=== PATIENT | male | born 1945 | race Caucasian/White ===

== ENCOUNTER 2017-08-21 07:31 | Day surgery (SDC) | payer MEDICARE, BC ==
[~2017-08-21] VITALS: Ht 172.7 cm; Wt 121.9 kg
[2017-08-21] VITALS (11 sets, daily range): BP systolic 120–142; BP diastolic 69–89; PULSE 52–67; TEMP 97.6
[2017-08-21] MEDS ORDERED: TENORMIN 5050 MG/TAB PO (08:13)
[2017-08-21] MEDS ORDERED: ZYRTEC 10MG10 MG PO (08:14)
[2017-08-21 08:15] LABS: HEMATOCRIT 47.1 % (42.0-52.0); MEAN CELL VOLUME 90 fl (80.0-100.0); MEAN CORPUSCULAR HEMOGLOBIN 31 pg (27.0-31.0); MEAN CORPUSCULAR HGB CONC 34 g/dl (33.0-37.0); MEAN PLATELET VOLUME 9.9 fl (7.4-10.4); PLATELET COUNT 237 K/mm3 (130-400); RED BLOOD COUNT 5.23 M/mm3 (4.20-5.60); WHITE BLOOD COUNT 8.2 K/mm3 (4.8-10.8)
[2017-08-21] MEDS ORDERED: NORCO 325 MG-7.1 TAB PO (08:16)
[2017-08-21] MEDS ORDERED: LEVOXYL0.125 MG PO (08:17)
[2017-08-21] MEDS ORDERED: PROCARDIA XL 3030 MG PO (08:17)
[2017-08-21] MEDS ORDERED: PROTONIX 40MG T40 MG PO (08:18)
[2017-08-21 08:19] LABS: PROTHROMBIN TIME 10.8 SECONDS (9.7-12.8)
[2017-08-21] MEDS ORDERED: ASPIRIN E.C. 8181 MG PO (08:19)
[2017-08-21] MEDS ORDERED: LIVALO4 MG PO (08:20)
[2017-08-21 08:25] LABS: CALCIUM 9.7 mg/dL (8.4-10.2); CREATININE, serum 0.76 mg/dL (0.66-1.25); POTASSIUM 4.3 mmol/L (3.4-5.0)
== END 2017-08-21 14:00 | disposition home or self-care (01) ==
LOC: COL.CAR 07:31
PROVIDERS: Internal Medicine Cardiovascular Disease
DX: I25.10 Atherosclerotic heart disease of native coronary artery without angina pectoris (principal); I08.1 Rheumatic disorders of both mitral and tricuspid valves; I10 Essential (primary) hypertension; E78.5 Hyperlipidemia, unspecified; Z96.653 Presence of artificial knee joint, bilateral; Z82.49 Family history of ischemic heart disease and other diseases of the circulatory system; Z87.891 Personal history of nicotine dependence
CPT/HCPCS: J2250; J3010; Q9967

== ENCOUNTER → 2017-12-04 | Outpatient (CLI) | payer MEDICARE, BC ==
[~2017-12-04] MED LIST: ASPIRIN E.C. 8181 MG PO; LEVOXYL0.125 MG PO; LIVALO4 MG PO; NORCO 325 MG-7.1 TAB PO; PROCARDIA XL 3030 MG PO; PROTONIX 40MG T40 MG PO; TENORMIN 5050 MG/TAB PO; ZYRTEC 10MG10 MG PO
== END ==
LOC: COL.PUL 12:55
DX: R06.02 Shortness of breath (principal)
CPT/HCPCS: J7674

== ENCOUNTER → 2018-03-05 | Outpatient (CLI) | payer MEDICARE, BC ==
[~2018-03-05] VITALS: Ht 172.7 cm; Wt 125.0 kg
[~2018-03-05] MED LIST changes: +CRESTOR40 MG
[2018-03-05 10:11] VITALS: BP 148/86; PULSE 68
[2018-03-05 11:20] VITALS: BP 122/76; PULSE 63
== END ==
LOC: COL.RAD 09:51
DX: M48.07 Spinal stenosis, lumbosacral region (principal)
CPT/HCPCS: J3301

== ENCOUNTER 2018-03-07 18:27 | Emergency (ER) | payer MEDICARE, BC ==
[~2018-03-07] VITALS: Ht 172.7 cm; Wt 124.1 kg
[2018-03-07 18:31] VITALS: TEMP 98.3
[2018-03-07 19:38] LABS: COLLECTION METHOD CLEAN CATCH
[2018-03-07 19:51] LABS: MUCOUS Present /lpf; PH 5 (5-8); SQUAMOUS EPITHELIAL None Seen /hpf; URINE APPEARANCE Hazy; URINE BACTERIA None Seen /hpf; URINE BILIRUBIN Negative (NEGATIVE); URINE BLOOD 2+ (NEGATIVE); URINE CALCIUM OXALATE CRYSTAL Present /hpf; URINE COLOR Yellow; URINE GLUCOSE Negative (NEGATIVE); URINE KETONE Negative (NEGATIVE); URINE LEUKOCYTE ESTERASE Negative (NEGATIVE); URINE NITRATE Negative (NEGATIVE); URINE PROTEIN(semi-quant) 1+ (NEGATIVE)
[2018-03-07 20:24] LABS: BASO % 0.3 % (0.0-2.0); EOS # 0.1 (0.0-0.7); EOS % 0.5 % (0-4.0); GRAN # 6.2 (1.4-6.5); GRAN % 61.3 % (42.2-75.2); HEMATOCRIT 43.1 % (42.0-52.0); LYMPH # 3.1 (1.2-3.4); LYMPH % 30.4 % (20.0-51.0); MEAN CELL VOLUME 89 fl (80.0-100.0); MEAN CORPUSCULAR HEMOGLOBIN 31 pg (27.0-31.0); MEAN CORPUSCULAR HGB CONC 35 g/dl (33.0-37.0); MEAN PLATELET VOLUME 9.1 fl (7.4-10.4); MONO # 0.7 (0.1-0.6); MONO % 7.3 % (1.7-9.3); PLATELET COUNT 240 K/mm3 (130-400); RED BLOOD COUNT 4.83 M/mm3 (4.20-5.60); REDCELL DISTRIBUTION WIDTH-CV 12.1 % (11.5-14.5)
[2018-03-07 20:35] LABS: ALBUMIN 4.2 gm/dL (3.5-5.0); BILIRUBIN,TOTAL 0.6 mg/dL (0.0-1.0); CALCIUM 9.3 mg/dL (8.4-10.2); CREATININE, serum 0.74 mg/dL (0.66-1.25); POTASSIUM 4.2 mmol/L (3.4-5.0); TOTAL PROTEIN 7.8 gm/dL (6.4-8.2)
[2018-03-07] MEDS ORDERED: VALIUM 2MG T2 MG/TAB PO (22:30)
[2018-03-07] MEDS ORDERED: NEURONTIN300 MG/CAP PO (22:30)
[2018-03-07 22:44] VITALS: BP 123/67; PULSE 51
== END 2018-03-07 22:48 | disposition home or self-care (01) ==
LOC: COL.ER 18:27
PROVIDERS: Emergency Medicine
DX: M54.31 Sciatica, right side (principal); I10 Essential (primary) hypertension; E78.00 Pure hypercholesterolemia, unspecified; Z90.49 Acquired absence of other specified parts of digestive tract; Z96.651 Presence of right artificial knee joint; Z79.82 Long term (current) use of aspirin
CPT/HCPCS: J1170; J1885; J2060; J7040; J7050; Q9967

== ENCOUNTER → 2018-05-12 | Outpatient (CLI) | payer MEDICARE, BC ==
[~2018-05-12] MED LIST changes: +NEURONTIN300 MG/CAP PO; +VALIUM 2MG T2 MG/TAB PO
== END ==
LOC: COL.RAD 11:31
DX: S32.030D Wedge compression fracture of third lumbar vertebra, subsequent encounter for fracture with routine healing (principal); Z98.890 Other specified postprocedural states

== ENCOUNTER → 2018-05-21 | Outpatient (CLI) | payer MEDICARE, BC | LOC: MHCPAIN 09:29 | DX: M54.16 Radiculopathy, lumbar region (principal) | CPT/HCPCS: J1040; J2250; J3010; Q9967 ==

== ENCOUNTER → 2018-06-23 | Outpatient (CLI) | payer MEDICARE, BC | LOC: MHCPAIN 11:09 | DX: G89.29 Other chronic pain (principal); M47.817 Spondylosis without myelopathy or radiculopathy, lumbosacral region; M54.16 Radiculopathy, lumbar region; M53.3 Sacrococcygeal disorders, not elsewhere classified; M96.1 Postlaminectomy syndrome, not elsewhere classified | CPT/HCPCS: G0463 ==

== ENCOUNTER → 2018-07-14 | Outpatient (CLI) | payer MEDICARE, BC | LOC: MHCPAIN 12:30 | DX: G89.29 Other chronic pain (principal); M47.817 Spondylosis without myelopathy or radiculopathy, lumbosacral region; M54.16 Radiculopathy, lumbar region; M53.3 Sacrococcygeal disorders, not elsewhere classified; M96.1 Postlaminectomy syndrome, not elsewhere classified | CPT/HCPCS: G0463 ==

== ENCOUNTER → 2018-07-16 | Outpatient (CLI) | payer MEDICARE, BC | LOC: MHCPAIN 11:01 | DX: M47.817 Spondylosis without myelopathy or radiculopathy, lumbosacral region (principal); M54.16 Radiculopathy, lumbar region ==

== ENCOUNTER → 2018-07-22 | Outpatient (CLI) | payer MEDICARE, BC | LOC: MHCPAIN 13:06 | DX: G89.29 Other chronic pain (principal); M47.817 Spondylosis without myelopathy or radiculopathy, lumbosacral region; M54.16 Radiculopathy, lumbar region; M53.3 Sacrococcygeal disorders, not elsewhere classified; M96.1 Postlaminectomy syndrome, not elsewhere classified | CPT/HCPCS: G0463 ==

== ENCOUNTER → 2018-07-23 | Outpatient (CLI) | payer MEDICARE, BC | LOC: MHCPAIN 12:08 | DX: M47.817 Spondylosis without myelopathy or radiculopathy, lumbosacral region (principal); M54.5 Low back pain | CPT/HCPCS: J1100; J2250; J3010 ==

== ENCOUNTER → 2018-09-22 | Outpatient (CLI) | payer MEDICARE, BC | LOC: MHCPAIN 11:03 | DX: G89.29 Other chronic pain (principal); M47.817 Spondylosis without myelopathy or radiculopathy, lumbosacral region; M54.16 Radiculopathy, lumbar region; M53.3 Sacrococcygeal disorders, not elsewhere classified; M96.1 Postlaminectomy syndrome, not elsewhere classified | CPT/HCPCS: G0463 ==

== ENCOUNTER → 2019-02-24 | Outpatient (CLI) | payer MEDICARE, BC | LOC: MHCPAIN 13:04 | DX: G89.29 Other chronic pain (principal); M47.817 Spondylosis without myelopathy or radiculopathy, lumbosacral region; M54.16 Radiculopathy, lumbar region; M53.3 Sacrococcygeal disorders, not elsewhere classified; M96.1 Postlaminectomy syndrome, not elsewhere classified | CPT/HCPCS: G0463 ==

== ENCOUNTER → 2019-02-25 | Outpatient (CLI) | payer MEDICARE, BC | LOC: MHCPAIN 14:58 | DX: M47.817 Spondylosis without myelopathy or radiculopathy, lumbosacral region (principal); M54.16 Radiculopathy, lumbar region ==

== ENCOUNTER → 2019-03-08 | Outpatient (CLI) | payer MEDICARE, BC | LOC: MHCPAIN 13:16 | DX: M47.817 Spondylosis without myelopathy or radiculopathy, lumbosacral region (principal); M54.16 Radiculopathy, lumbar region; M53.3 Sacrococcygeal disorders, not elsewhere classified; M96.1 Postlaminectomy syndrome, not elsewhere classified; G89.29 Other chronic pain | CPT/HCPCS: G0463; J1100; J2250; J3010 ==

== ENCOUNTER 2019-03-15 14:24 | Emergency (ER) | payer MEDICARE, BC ==
[~2019-03-15] VITALS: Ht 172.7 cm; Wt 122.3 kg
[2019-03-15 14:29] VITALS: BP 140/89; TEMP 98
[2019-03-15 14:56] LABS: COLLECTION METHOD CLEAN CATCH
[2019-03-15 15:16] LABS: PH 6 (5-8); SQUAMOUS EPITHELIAL None Seen /hpf; URINE APPEARANCE Clear; URINE BACTERIA None Seen /hpf; URINE BILIRUBIN Negative (NEGATIVE); URINE BLOOD 2+ (NEGATIVE); URINE COLOR Straw; URINE GLUCOSE Negative (NEGATIVE); URINE KETONE Negative (NEGATIVE); URINE LEUKOCYTE ESTERASE Negative (NEGATIVE); URINE NITRATE Negative (NEGATIVE); URINE PROTEIN(semi-quant) Negative (NEGATIVE); URINE RBC 0-2 /hpf; URINE UROBILINOGEN Negative (NEGATIVE)
[2019-03-15] MEDS ORDERED: NEURONTIN300 MG/CAP PO (15:49)
[2019-03-15] MEDS ORDERED: VALIUM 5MG T5 MG/TAB PO (15:49)
[2019-03-15] MEDS ORDERED: PREDNISONE20 MG PO (15:49)
[2019-03-15] MEDS ORDERED: PERCOCET 325 MG1 TA3 PO (16:15)
[2019-03-15 16:23] VITALS: PULSE 67
== END 2019-03-15 16:22 | disposition home or self-care (01) ==
LOC: COL.ER 14:24
PROVIDERS: Emergency Medicine
DX: M54.5 Low back pain (principal); I10 Essential (primary) hypertension; K21.9 Gastro-esophageal reflux disease without esophagitis; Z98.890 Other specified postprocedural states; Z90.49 Acquired absence of other specified parts of digestive tract; Z87.39 Personal history of other diseases of the musculoskeletal system and connective tissue; Z79.82 Long term (current) use of aspirin
CPT/HCPCS: J1170; J2060; J7512

== ENCOUNTER → 2019-03-18 | Outpatient (CLI) | payer MEDICARE, BC ==
[~2019-03-18] MED LIST changes: +PERCOCET 325 MG1 TA3 PO; +PREDNISONE20 MG PO; +VALIUM 5MG T5 MG/TAB PO
== END ==
LOC: MHCPAIN 11:04
DX: M54.16 Radiculopathy, lumbar region (principal); M47.817 Spondylosis without myelopathy or radiculopathy, lumbosacral region; M53.3 Sacrococcygeal disorders, not elsewhere classified; M96.1 Postlaminectomy syndrome, not elsewhere classified; G89.29 Other chronic pain
CPT/HCPCS: G0463; J1100; Q9967

== ENCOUNTER 2019-04-25 12:56 | Emergency (ER) | payer MEDICARE, BC ==
[~2019-04-25] VITALS: Ht 175.3 cm; Wt 122.3 kg
[2019-04-25] MEDS ORDERED: VALIUM 5MG T5 MG/TAB PO (16:29)
[2019-04-25] MEDS ORDERED: FLEXERIL 1010 MG/TAB PO (16:29)
[2019-04-25] MEDS ORDERED: PERCOCET 325 MG1 TA2 PO (16:29)
[2019-04-25] MEDS ORDERED: MEDROL 4MG DOSPA4 MG PO (16:29)
[2019-04-25 16:45] VITALS: BP 126/67; PULSE 66; TEMP 98.7
== END 2019-04-25 16:45 | disposition home or self-care (01) ==
LOC: COL.ER 12:56
DX: M54.5 Low back pain (principal); G89.29 Other chronic pain; Z79.82 Long term (current) use of aspirin
CPT/HCPCS: J1885; J2270

== ENCOUNTER → 2019-04-26 | Outpatient (CLI) | payer MEDICARE, BC ==
[~2019-04-26] MED LIST changes: +FLEXERIL 1010 MG/TAB PO; +MEDROL 4MG DOSPA4 MG PO; +PERCOCET 325 MG1 TA2 PO
== END ==
LOC: COL.RAD 15:38
DX: M43.8X6 Other specified deforming dorsopathies, lumbar region (principal)

== ENCOUNTER 2019-05-19 14:45 | Outpatient (RCR) | payer MEDICARE, BC | END 2019-05-20 13:29 | disposition home or self-care (01) | LOC: WSC 14:45 | DX: M47.817 Spondylosis without myelopathy or radiculopathy, lumbosacral region (principal); M96.1 Postlaminectomy syndrome, not elsewhere classified; M53.3 Sacrococcygeal disorders, not elsewhere classified; Z98.890 Other specified postprocedural states ==

== ENCOUNTER → 2019-06-15 | Outpatient (CLI) | payer MEDICARE, BC | LOC: MHCPAIN 12:56 | DX: G89.29 Other chronic pain (principal); M47.817 Spondylosis without myelopathy or radiculopathy, lumbosacral region; M54.16 Radiculopathy, lumbar region | CPT/HCPCS: G0463 ==

== ENCOUNTER 2020-08-04 14:09 | Observation (INO) | payer MEDICARE, BC ==
[~2020-08-04] VITALS: Ht 175.3 cm; Wt 122.6 kg
[2020-08-04 15:11] LABS: COLLECTION METHOD CLEAN CATCH
[2020-08-04 15:40] LABS: MUCOUS Present /lpf; PH 6 (5-8); SQUAMOUS EPITHELIAL None Seen /hpf; URINE APPEARANCE Clear; URINE BACTERIA None Seen /hpf; URINE BILIRUBIN Negative (NEGATIVE); URINE BLOOD 2+ (NEGATIVE); URINE COLOR Yellow; URINE GLUCOSE Negative (NEGATIVE); URINE KETONE Negative (NEGATIVE); URINE LEUKOCYTE ESTERASE Negative (NEGATIVE); URINE NITRATE Negative (NEGATIVE); URINE PROTEIN(semi-quant) Negative (NEGATIVE); URINE UROBILINOGEN Negative (NEGATIVE)
[2020-08-04 17:55] LABS: BASO % 0.2 % (0.0-2.0); EOS % 0.2 % (0-4.0); GRAN % 78.2 % (42.2-75.2); HEMATOCRIT 44.4 % (42.0-52.0); HEMOGLOBIN 15.4 g/dl (13.5-18.0); LYMPH # 2.3 (1.2-3.4); LYMPH % 17.7 % (20.0-51.0); MEAN CELL VOLUME 90 fl (80.0-100.0); MEAN CORPUSCULAR HEMOGLOBIN 31 pg (27.0-31.0); MEAN CORPUSCULAR HGB CONC 35 g/dl (33.0-37.0); MEAN PLATELET VOLUME 9.3 fl (7.4-10.4); MONO # 0.4 (0.1-0.6); MONO % 3.4 % (1.7-9.3); PLATELET COUNT 263 K/mm3 (130-400); RED BLOOD COUNT 4.96 M/mm3 (4.20-5.60); REDCELL DISTRIBUTION WIDTH-CV 11.7 % (11.5-14.5)
[2020-08-04 18:12] LABS: ALBUMIN 4.9 gm/dL (3.5-5.0); BILIRUBIN,TOTAL 1.7 mg/dL (0.0-1.0); C-REACTIVE PROTEIN 0.6 mg/dL (0.0-0.9); CALCIUM 9.7 mg/dL (8.4-10.2); CREATININE, serum 0.61 (0.66-1.25); POTASSIUM 4.4 mmol/L (3.4-5.0); TOTAL PROTEIN 8.6 gm/dL (6.4-8.2)
[2020-08-04 18:23] LABS: ERYTHROCYTE SEDIMENTATION RATE 13 mm/hr (0-30)
[2020-08-04] MEDS ORDERED: SYNTHROID0.125 MG/T PO (19:39)
[2020-08-04] MEDS ORDERED: VOLTAREN GEL 1%1 TU TP (19:39)
[2020-08-04] MEDS ORDERED: ADALAT CC60 MG PO (19:40)
[2020-08-04] MEDS ORDERED: PERCOCET 325 MG1 TA2 PO (19:41)
[2020-08-04] MEDS ORDERED: PROTONIX 40MG T40 MG PO (19:41)
[2020-08-04] MEDS ORDERED: LIVALO2 MG PO (19:41)
[2020-08-04] MEDS ORDERED: MYRBETR50MG PO (19:42)
[2020-08-04] MEDS ORDERED: VIAGRA 25MG TAB25 MG PO (19:42)
[2020-08-04] MEDS ORDERED: LIORESAL 1010 MG/TAB PO (19:45)
[2020-08-04] MEDS ORDERED: BENADRYL25 M2 PO (21:45)
[2020-08-04] MEDS ORDERED: MELATONIN5 M1 SL (21:45)
[2020-08-04 23:48] VITALS: BP 145/72; PULSE 69; TEMP 97.7
--- NOTE | 2020-08-05 | NUR ---
Patient arrived to medical floor from ER at approximately 2200. Reports pain to back. Given PRN Dilaudid. Complained of insomnia and was given Melatonin. Peripheral IV to right AC. Fluids running per orders. Site without redness, warmth, swelling, and pain. Denies SOB and dyspnea. LS CTA. Respirations even and unlabored. HRR. Capillary refill less than 3 seconds. Non-tenting skin turgor. BSAx4. Abdomen soft and non-tender. 1+ edema BLE. Voices no questions, needs, or concerns at this time. Resting in bed with call light within reach.
[2020-08-05 04:00] VITALS: BP 139/66; PULSE 65; TEMP 98.1
--- NOTE | 2020-08-05 06:02 | NUR ---
Patient continues to receive PRN Dilaudid for pain about every 2-3 hours as requested. Has been able to stand up by bed to use urinal. Ambulated to bathroom at this time with one person [id number]. Stated that he did not have any of the shooting pain while ambulating that was severe, but pain does continue. Voices no further questions, needs, or concerns at this time. Resting in bed with call light within reach.
[2020-08-05 07:20] LABS: BASO % 0.1 % (0.0-2.0); GRAN # 9.2 (1.4-6.5); GRAN % 77.8 % (42.2-75.2); HEMATOCRIT 41.2 % (42.0-52.0); HEMOGLOBIN 14.4 g/dl (13.5-18.0); LYMPH # 2.1 (1.2-3.4); LYMPH % 17.9 % (20.0-51.0); MEAN CELL VOLUME 89 fl (80.0-100.0); MEAN CORPUSCULAR HEMOGLOBIN 31 pg (27.0-31.0); MEAN CORPUSCULAR HGB CONC 35 g/dl (33.0-37.0); MEAN PLATELET VOLUME 9.5 fl (7.4-10.4); MONO # 0.5 (0.1-0.6); MONO % 3.9 % (1.7-9.3); PLATELET COUNT 253 K/mm3 (130-400); RED BLOOD COUNT 4.62 M/mm3 (4.20-5.60); REDCELL DISTRIBUTION WIDTH-CV 11.8 % (11.5-14.5)
[2020-08-05 07:31] LABS: ALBUMIN 4.5 gm/dL (3.5-5.0); BILIRUBIN,TOTAL 0.8 mg/dL (0.0-1.0); CALCIUM 9.5 mg/dL (8.4-10.2); CREATININE, serum 0.53 (0.66-1.25); POTASSIUM 3.9 mmol/L (3.4-5.0); TOTAL PROTEIN 7.8 gm/dL (6.4-8.2)
[2020-08-05 08:22] VITALS: BP 150/75; PULSE 76; TEMP 97.9
--- NOTE | 2020-08-05 08:46 | NUR ---
PT IN BED WITH HOB ELEVATED TO 30 DEGREE ANGLE, A/O X4, WITH C/O LOWER BACK PAIN THAT IS A CONSTANT ACHE, BUT WITH MOVEMENT IS A SHARP PAIN, RATED AT 5/10 AT THIS TIME, PRN PAIN MEDICATION GIVEN FOR PAIN, SEE EMAR. NO FURTHER NEEDS AT THIS TIME, CALL LIGHT WITHIN REACH.
[2020-08-05 12:26] VITALS: BP 151/75; PULSE 63; TEMP 98.1
--- NOTE | 2020-08-05 14:07 | NUR ---
SW met with patient to complete intake. Patient states that he lives in [facility] with his [phone]. patient states that he does not utilize any DME, and he is independent with his ADL's. Patient provides that his PCP is Dr. Flores, obtains medications from [facility], and that he is able to afford his medication at this time. Patient provides that he has documentation that his is his DPOA-HC and that he has the documenation at home. Patient states that his plan is to go back home upon DC and does not feel as though he will need any assistance when he returns. SW provided information in regards to discharge resource that can be provided when discharging. SW will continue to follow.
[2020-08-05 16:36] VITALS: BP 151/69; PULSE 63; TEMP 98.4
[2020-08-05 19:08] VITALS: BP 139/73; PULSE 60; TEMP 98.5
--- NOTE | 2020-08-05 19:14 | NUR ---
PT CONTINUED TO STRUGGLE WITH KEEPING PAIN UNDER CONTROL. PT ALSO ADVISED THAT HE HAD TWO EPISODES OF DIARRHEA. PT DID GET SOME REST THIS SHIFT. PT HAS CALL LIGHT WITHIN REACH AND NEEDS MET.
--- NOTE | 2020-08-05 20:50 | NUR ---
Patient assessed at this time. Alert and oriented x 4, and able to make needs known. Continues to have pain to back. Stated not so bad at rest, but severe wtih any movement. Is standing up at bedside independently to use urinal. Has been receiving PRN Dilaudid, Toradol, and Ultram per orders-see MAR for times. Peripheral IV to right AC with fluids running per orders. Site is without redness, warmth, swelling, and pain. Denies SOB and dyspnea. LS CTA. Respirations even and unlabored. HRR. Capillary refill less than 3 seconds. Non-tenting skin turgor. BSAx4. Abdomen soft and non-tender. 2+ edema BLE. Voices no questions, needs, or concerns at this time. Resting in bed with call light within reach.
[2020-08-05 23:27] VITALS: BP 136/54; PULSE 53; TEMP 99
[2020-08-06 03:58] VITALS: BP 147/73; PULSE 51; TEMP 98.2
--- NOTE | 2020-08-06 06:05 | NUR ---
Patient had received PNR Dilaudid around 2049, 2309, and 499, PRN Ultram around 2049, and PRN Toradol around 2219 and 499 as requested. Seemed to be resting well between midnight and 0500 when checked on, and voiced no complaints of pain or discomfort during that time. Voices no questions, needs, or concerns at this time. Resting in bed with call light within reach.
[2020-08-06 07:11] VITALS: BP 152/75; PULSE 55; TEMP 97.8
[2020-08-06 07:16] LABS: BASO # 0.1 (0.0-0.2); BASO % 0.4 % (0.0-2.0); EOS # 0.1 (0.0-0.7); EOS % 0.5 % (0-4.0); GRAN # 7.7 (1.4-6.5); HEMATOCRIT 40.3 % (42.0-52.0); LYMPH # 4.5 (1.2-3.4); LYMPH % 33.4 % (20.0-51.0); MEAN CELL VOLUME 91 fl (80.0-100.0); MEAN CORPUSCULAR HEMOGLOBIN 32 pg (27.0-31.0); MEAN CORPUSCULAR HGB CONC 35 g/dl (33.0-37.0); MEAN PLATELET VOLUME 9.2 fl (7.4-10.4); MONO % 7.4 % (1.7-9.3); PLATELET COUNT 243 K/mm3 (130-400); RED BLOOD COUNT 4.44 M/mm3 (4.20-5.60); REDCELL DISTRIBUTION WIDTH-CV 12.2 % (11.5-14.5)
[2020-08-06 07:29] LABS: ALBUMIN 4.1 gm/dL (3.5-5.0); BILIRUBIN,TOTAL 0.7 mg/dL (0.0-1.0); CALCIUM 9.1 mg/dL (8.4-10.2); CREATININE, serum 0.59 (0.66-1.25); POTASSIUM 3.7 mmol/L (3.4-5.0); TOTAL PROTEIN 7.2 gm/dL (6.4-8.2)
--- NOTE | 2020-08-06 08:26 | NUR ---
Pt assessment complete. Pt is sitting up on side of bed eating breakfast, he is A/O x3. His breathing is even and unlabored on RA. Pt denies SOB. Currently on RA. Pt reports pain with movement 12/10, but at rest /10. Reports that the shooting pains have not lessened in intensity but occasionally do not occur. Reports having two loose stools this AM. No N/V. IVF infusing without complications. SCD's in place. POC discussed with patient who verbalizes understanding. No needs at this time.
[2020-08-06 11:33] VITALS: BP 146/72; PULSE 48; TEMP 98
[2020-08-06] MEDS ORDERED: ULTRAM 50MG TAB50 MG PO (12:07)
--- NOTE | 2020-08-06 13:50 | NUR ---
SW received a call from patients provider who indicated that patient was discharging and he was interested in what services may be available for patient. SW spoke with patient, who reported an interest in PT/OT services. Patient provided [facility] med.gov sheet and patient chose three different [facility] agencies ([facility], [facility], and [facility]) Sw informed provider. SW then contacted agencies, and faxed over forms. Rae at [facility] did contact this SW and indicated that she would have to contact her bottoming room supervisor to see if the patient could be serviced as he may not live in their covered area.
--- NOTE | 2020-08-06 15:40 | NUR ---
Discharge instructions and paperwork reviewed with patient. All questions answered at this time. IV to RAC dc'd catheter tip intact. Pt wheeled out of facility at this time.
--- NOTE | 2020-08-07 10:00 | NUR ---
Container Finisher was contacted by Suzanne at [facility] who advised she did not receive referral yesterday. SW faxed referral and discharge orders as patient discharged yesterday. No additional needs identified at this time.
== END 2020-08-06 15:20 | disposition home or self-care (01) ==
LOC: COL.ER 14:09 → MEDICAL 18:58
PROVIDERS: Emergency Medicine; Nurse Practitioner Family; ADMIT Internal Medicine Pulmonary Disease
DX: M54.5 Low back pain (principal); G89.29 Other chronic pain; M48.07 Spinal stenosis, lumbosacral region; R74.01 Elevation of levels of liver transaminase levels; M43.07 Spondylolysis, lumbosacral region; M54.17 Radiculopathy, lumbosacral region; F11.20 Opioid dependence, uncomplicated; I10 Essential (primary) hypertension; I25.10 Atherosclerotic heart disease of native coronary artery without angina pectoris; E03.9 Hypothyroidism, unspecified; K21.9 Gastro-esophageal reflux disease without esophagitis; D72.829 Elevated white blood cell count, unspecified; D35.02 Benign neoplasm of left adrenal gland; E80.7 Disorder of bilirubin metabolism, unspecified; R35.0 Frequency of micturition; R35.1 Nocturia; F17.290 Nicotine dependence, other tobacco product, uncomplicated; Z85.820 Personal history of malignant melanoma of skin; Z98.1 Arthrodesis status; Z90.49 Acquired absence of other specified parts of digestive tract; Z96.653 Presence of artificial knee joint, bilateral; Z79.899 Other long term (current) drug therapy
CPT/HCPCS: 99239; G0378; J1170; J1885; J2930; J3010; J3360; J7030

== ENCOUNTER 2020-10-16 10:30 | Outpatient (RCR) | payer MEDICARE, BC ==
[~2020-10-16 10:30] MED LIST changes: +ADALAT CC60 MG PO; +BENADRYL25 M2 PO; +LIORESAL 1010 MG/TAB PO; +LIVALO2 MG PO; +MELATONIN5 M1 SL; +MYRBETR50MG PO; +SYNTHROID0.125 MG/T PO; +ULTRAM 50MG TAB50 MG PO; +VIAGRA 25MG TAB25 MG PO; +VOLTAREN GEL 1%1 TU TP
== END 2020-10-23 | disposition home or self-care (01) ==
LOC: WSPT
DX: M54.42 Lumbago with sciatica, left side (principal)

== ENCOUNTER → 2020-11-01 | Outpatient (CLI) | payer MEDICARE, BC | LOC: COL.RAD 11:26 | DX: I67.82 Cerebral ischemia (principal); G31.9 Degenerative disease of nervous system, unspecified; Z98.890 Other specified postprocedural states ==

== ENCOUNTER 2021-03-01 08:15 | Outpatient (RCR) | payer MEDICARE, BC | END 2021-03-02 09:48 | disposition home or self-care (01) | LOC: WSPT 08:15 | DX: M54.41 Lumbago with sciatica, right side (principal); M54.42 Lumbago with sciatica, left side; G89.29 Other chronic pain ==

== ENCOUNTER 2023-09-25 08:53 | Outpatient (RCR) | payer MEDICARE, BC ==
[2023-10-17] MEDS ORDERED: ATARAX 25MG25 MG/TAB PO (15:50)
[2023-10-17] MEDS ORDERED: STOOL SOFTENER100 M2 PO (15:52)
[2023-10-17] MEDS ORDERED: ROXICODONE 55 MG/TAB PO (16:00)
[2023-10-17] MEDS ORDERED: NORCO 325 MG-7.1 TAB PO (16:04)
[2023-10-17] MEDS ORDERED: LYRICA 75MG CAP75 MG PO (16:08)
[2023-10-17] MEDS ORDERED: JARDIANCE25 PO (16:09)
== END 2023-10-19 | disposition home or self-care (01) ==
LOC: WSPT
DX: M19.072 Primary osteoarthritis, left ankle and foot (principal); M21.42 Flat foot [pes planus] (acquired), left foot

== ENCOUNTER 2023-10-17 12:50 | Inpatient (IN) | payer MEDICARE, BC ==
[~2023-10-17] VITALS: Ht 175.3 cm; Wt 113.2 kg
[2023-10-17 13:00] VITALS: BP_SYST 132
[2023-10-17 14:07] VITALS: BP 132/80; PULSE 60; TEMP 97.8
--- NOTE | 2023-10-17 15:40 | NUR ---
Has lack of transportation kept you from medical appts, meetings, work, or from getting things needed for daily living? no How often do you feel lonely or isolated from those around you? never Over the past 5 days, how much of the time has pain made it hard for you to sleep? frequently Over the past 5 days, how often have you limited your participation in therapy due to pain? NO THERAPY IN PAST 5 DAYS Over the past 5 days, how often have you limited your day-to-day activities because of pain? rarely/not at all Have you had 2 or more falls in the past year or any fall with an injury? no Did you have major surgery during the 100 days prior to admission? yes
[2023-10-17] MEDS ORDERED: ATARAX 25MG25 MG/TAB PO (15:50)
[2023-10-17] MEDS ORDERED: STOOL SOFTENER100 M2 PO (15:52)
[2023-10-17] MEDS ORDERED: ROXICODONE 55 MG/TAB PO (16:00)
[2023-10-17] MEDS ORDERED: NORCO 325 MG-7.1 TAB PO (16:04)
[2023-10-17] MEDS ORDERED: TENORMIN 5050 MG/TAB PO (16:06)
[2023-10-17] MEDS ORDERED: LYRICA 75MG CAP75 MG PO (16:08)
[2023-10-17] MEDS ORDERED: JARDIANCE25 PO (16:09)
[2023-10-17 16:56] VITALS: BP_SYST 132
[2023-10-17 18:05] VITALS: BP 137/88; PULSE 52; TEMP 97.8
[2023-10-17 21:00] VITALS: BP_SYST 137
[2023-10-18] VITALS (8 sets, daily range): BP systolic 134–138; BP diastolic 83–84; PULSE 51; TEMP 97.4–97.9
--- NOTE | 2023-10-18 04:02 | NUR ---
NURSING SHIFT ASSESSMENT COMPLETED. THE PATIENT IS ALERT, ORIENTED AND APPROPRIATE. THE PATIENT REPORTS LEFT ANKLE PAIN, PAIN MEDICATION SCHEDULE REVIEWED. GREGORY ORO APRN NOTIFIED OF PATIENTS PAIN CONTROL CONCERNS. NO NEW ORDERS RECEIVED. THE PLAN OF CARE AND EVENING MEDICATIONS REVIEWED. NO OTHER NEEDS AT THIS TIME. BED IN LOW POSITION, CALL LIGHT WITHIN REACH, BED ALARM ON.
--- NOTE | 2023-10-18 11:13 | NUR ---
PT ALERT AND ORIENTED, VSS. THIS PT IS IN A PLEASANT MOOD UPON ENTERING THE ROOM THIS AM, BUT IS WANTING TO KNOW WHY HE CANT HAVE HIS OXYCODONE FOR PAIN, DR. BALTAZAR ALREADY ADDRESSED THIS YESTERDAY WITH HIM, EXPAINING THAT IT WAS SHORT TIME PRESCRIPTION FOR POST SURGERY PAIN, HIS SURGERY WAS SEPTEMBER 29. HOWEVER, HE IS WORKING GREAT WITH THERAPY AND HE IS 1 PERSON CONTACT GUARD ASSIST TO TRANSFER/PIVOT. HE IS TO BE NON WEIGHT BEARING X 6MONTHS. EVEN , UNLABORED RESPR. AND NO COMPLAINTS AT THIS TIME. PAIN RATED 3/10, MEDICATED PER EMAR. CALL LIGHT WITHIN REACH, BED ALARM SET.
--- NOTE | 2023-10-18 11:42 | NUR ---
Data: Care Support Representative visit attempted. Assessment: Patient was at group therapy. Plan of Care: Chaplains will remain available as needed/desired while Patient is admitted to this hospital.
--- NOTE | 2023-10-18 11:42 | NUR ---
PT ALERT AND ORIENTED X4. VSS, SHIFT ASSESSMENT COMPLETE. PAIN RATED 8/10 IN LEFT ANKLE/FOOT. MEDICATED PER EMAR. PT IS A ONE PERSON CONTACT/GUARD ASSIST TO STAND PIVOT. HE IS ABLE TO TAKE PO MED WHOLE, AND FEEDS HIMSELF.DENIES NEED FOR ANYTHING FURTHER AT THIS TIME. CALL LIGHT WITHIN REACH, BED ALARM SET.
[2023-10-19 06:09] VITALS: BP 153/82; PULSE 52; TEMP 97.7
[2023-10-19 07:00] VITALS: BP_SYST 153
--- NOTE | 2023-10-19 09:25 | NUR ---
Emergency Dispatch Operator met with patient to welcome him to the rehab unit. Patient lives in [place] with his , Opal (ph#[phone]) and sees Dr. Flores for primary care. Patient uses [facility] for medications and doesn't have any difficulties affording them. Patient drives himself to appointments and reported he is normally independent with ADLS. Patient stated he has a lot of medical equipment available at home. Patient has two walkers, scooters, and stool riser. Patient advised he has two steps into the front door and two steps into the home through the garage. Patient advised Opal is DPOA- but isn't sure where his copy is located.
[2023-10-19 16:41] VITALS: BP 143/77; PULSE 50; TEMP 98.2
--- NOTE | 2023-10-19 16:41 | NUR ---
Recieved report from Ratna JOHNSON. Took over care for this pt at 1530. pt alert and oriented x4. Resting in bed comfortably , pain rated 6/10, however not due for pain meds at this time. suggested theraputic comfort measures. Denies need fro anything further at this time. Even, unlabored respr. Call light within reach. Bed alarm set.
[2023-10-19 19:00] VITALS: BP_SYST 143
[2023-10-20 05:13] VITALS: BP 150/83; PULSE 50; TEMP 98.2
[2023-10-20 07:00] VITALS: BP_SYST 150
--- NOTE | 2023-10-20 08:14 | NUR ---
PT ALLERT AND ORIENTED THIS MORNING RESTING IN BED, REPRORTS HE HAD A RESTLESS NIGHT. HE IS RATING HIS PAIN 9/10 , HOWEVER IS NOT DUE FOR PAIN MEDICINE. VSS, SHIFT ASSESSMENT COMPLETE,SEE DOCUMENTAION. MEDICATED PER EMAR. NO FURTHER REQUESTS AT THIS TIME. CALL LIGHT WITHIN REACH, BED ALARM ENGAGED.
[2023-10-20 16:31] VITALS: BP 150/81; PULSE 55; TEMP 98.1
[2023-10-20 19:00] VITALS: BP_SYST 150
--- NOTE | 2023-10-21 01:42 | NUR ---
NURSING SHIFT ASSESSMENT COMPLETED. THE PATIENT WAS IN BED WITH THE LIGHTS OFF UPON ENTERING THE ROOM. THE PATIENT HAD HIS C-PAP ON. THE PATIENT REPORTED PAIN 10/10 LEFT FOOT/ANKLE AND REQUESTED PAIN MEDICATION. HIS PAIN MEDICATION WAS NOT DUE UNTIL 9 PM AND THIS WAS EXPLAINED TO HIM WITH UNDERSTANDING. THE PATIENT DENIED OTHER NEEDS. THE PLAN OF CARE AND EVENING MEDICATIONS REVIEWED. CALL LIGHT AND PERSONAL BELONGINGS WITHIN REACH. BED IN LOW POSITION.
[2023-10-21 05:43] VITALS: BP 156/82; PULSE 56; TEMP 97.8
[2023-10-21 06:30] VITALS: BP_SYST 156
--- NOTE | 2023-10-21 09:19 | NUR ---
SHIFT ASSESMENT COMPLETE. PATIENT RESTING IN BED WAITING FOR PT. ALL MORNING MEDS GIVEN PER ORDERS. PATIENT REPORTS PAIN 8/10 IN LFT ANKLE, PAIN MEDS GIVEN PER ORDERS. PATIENT HAS NO OTHER REQUEST OR COMPLAINTS AT THIS TIME. FALL PRECAUTIONS IN PLACE AND CALL LIGHT IN REACH.
--- NOTE | 2023-10-21 15:27 | NUR ---
Admission QIM scores were reviewed by the team. Code of 5 chosen for oral hygiene was determined by team discussion to be the most usual performance before interventions for this patient during the assessment period. Code of 3 chosen for toileting hygiene was determined by team discussion to be the most usual performance for this patient during the discharge assessment period. Code of 4 chosen for toilet transfers was determined by team discussion to be the most usual performance for this patient during the discharge assessment period. Code of 4 chosen for sit to lying was determined by team discussion to be the most usual performance before interventions for this patient during the assessment period. Code of 4 chosen for lying to sitting side of bed was determined by team discussion to be the most usual performance before interventions for this patient during the assessment period.--Ashia Murray, PD
--- NOTE | 2023-10-21 16:15 | NUR ---
turf farm worker met with pt and his , Opal at bedside to discuss a family meeting. SW provided all information on this. Spouse reports she has appointments tomorrow during the normal meeting times. IPR Director was agreeable to another time . Opal and pt chose 1:00pm on 10/23/23. SW updated IPR Director.
[2023-10-21 18:18] VITALS: BP 125/76; PULSE 48; TEMP 98.4
[2023-10-21 19:46] VITALS: BP_SYST 125
--- NOTE | 2023-10-21 19:47 | NUR ---
Received change of shift report from day shift nurse. Patient resting in bed, exit alarm on, call light in reach.
--- NOTE | 2023-10-21 23:40 | NUR ---
Complaining of level 10/10 back and L foot pain. See MAR for meds given. No other needs reported at this time.
[2023-10-22 05:44] VITALS: BP 133/77; PULSE 53; TEMP 97.6
--- NOTE | 2023-10-22 06:52 | NUR ---
Change of shift report given to day shift nurse.
[2023-10-22 07:05] VITALS: BP_SYST 133
--- NOTE | 2023-10-22 07:06 | NUR ---
Shift report received from night RN. No events reported overnight. Pt sleeping supine in bed w/ even & unlabored resps. Call light in reach. Bed alarm on.
--- NOTE | 2023-10-22 08:51 | NUR ---
Shower completed w/ OT. L foot dressing removed by OT. Steri strips to medial & lateral foot incisions are CDI. Scabbing & slight tenderness to L heel. New charli wrap applied for incision protection. OT at the bedside to work on application of cam boot w/ the pt. Other needs denied. Call light in reach.
--- NOTE | 2023-10-22 10:23 | NUR ---
Pt resting supine in bed after PT. Pt rating LLE pain at 06/29. Tylenol given this morning. Approx 1 hr too soon for next dose Mills. Discussed w/ Dr. Ary ramirez to give dose now. Mills given per PRN order. Pt denies other needs at this time. Call light in reach. Bed alarm on.
--- NOTE | 2023-10-22 11:17 | NUR ---
Pt requesting that Miralax be increased to BID per shift report this morning. Pt no longer wanting this increased as he has had 2 BMs this shift so far.
--- NOTE | 2023-10-22 15:34 | NUR ---
Pt resting supine in bed. Pt requesting pain medication. Tylenol given per PRN order - too soon for [place]. Pt denies other needs. Call light in reach. Bed alarm on.
--- NOTE | 2023-10-22 16:25 | NUR ---
instrument worker attended team meeting regarding patient. He was set to discharge 10/24/23 with Home Health services and needing a wheelchair. ITALIA provided patient with the Medicare.gov list and will follow up tomorrow she stated. ITALIA sent the DME wheelchair request to [facility]. ITALIA emailed the RFS for the FWW to the [place] for approval. Discharge Plan: Home 10/24 with HH tbd?
[2023-10-22 17:48] VITALS: BP 125/73; PULSE 51; TEMP 97.8
[2023-10-22 19:14] VITALS: BP_SYST 125
--- NOTE | 2023-10-22 19:15 | NUR ---
Received change of shift report from day shift nurse.
--- NOTE | 2023-10-22 22:42 | NUR ---
Requested and given pain meds, see MAR. Reports level 9/10 pain to back/left foot.
--- NOTE | 2023-10-23 00:09 | NUR ---
Patient resting with eyes closed, breathing even and nonlabored. Did not wake during nursing rounds. Exit alarm on, call light in reach.
[2023-10-23 05:43] VITALS: BP 134/66; PULSE 60; TEMP 97.9
[2023-10-23 07:09] VITALS: BP_SYST 134
--- NOTE | 2023-10-23 07:11 | NUR ---
Change of shift report given to day shift nurseKalpana.
--- NOTE | 2023-10-23 08:53 | NUR ---
PT SITTING UP EDGE OF BED, EATING BREAKFAST, ALERT AND ORIENTEDX4. PT RATES PAIN 9/10 IN THE LEFT FOOT, LEGS, AND BACK. PT STATES THAT THIS IS NORMAL CHRONIC PAIN LEVEL FOR HIM. ASSESSED, GAVE MORNING MEDS. CALL LIGHT WITHIN REACH.
--- NOTE | 2023-10-23 13:35 | NUR ---
community placement worker met with patient for family meeting. Pt's , Opal was unable to attend. The team expressed patient was ready to discharge tomorrow with Home Health services. Patient [facility]. SW faxed a referral to both. ITALIA informed patient the wheelchair is being worked on by [facility]. SW informed patient the [facility] called and informed SW they will potentially be unable to cover the FWW through [employer] insurance due to the hospital stay not being billed by VA insurance. ITALIA expressed they informed SW pt should call his PCP to urge them to cover the FWW. Pt was understanding, but expressed he ordered one from [employer] already. ITALIA gave patient team meeting notes from yesterday and briefly went over them. Pt verbalized understanding. Discharge Plan: Home tomorrow with HH tbd?
--- NOTE | 2023-10-23 14:09 | NUR ---
Will lack of transportation kept you from medical appts, meetings, work, or from getting things needed for daily living? NO How often do you feel lonely or isolated from those around you? SOMETIMES Over the past 5 days, how much of the time has pain made it hard for you to sleep? FREQUENTLY Over the past 5 days, how often have you limited your participation in therapy due to pain? RARELY/NOT AT ALL Over the past 5 days, how often have you limited your day-to-day activities because of pain? RARELY/NOT AT ALL
[2023-10-23 18:11] VITALS: BP 138/79; PULSE 54; TEMP 98.1
[2023-10-23 18:30] VITALS: BP_SYST 138
--- NOTE | 2023-10-23 20:00 | NUR ---
PT RESTING IN BED. A&O. CHRONIC PAIN IN LOW BACK. LAST PAIN MED GIVEN FOR LT ANKLE, LOW BACK AND LEG PAIN WAS AT 1730. PAIN LEVEL IS AT AN 8/10. HAS IMPLANTED SPINE STIMULATOR. PT MAINTAINS ITS DOESN'T HELP. PT DENIES ANY DOCTOR FOLLOWS UP REGARDING PAIN STIMULATOR. HAS CAM BOOT ON AT PRESENT TIME. DENIES NUMBNESS OR TINGLING TO LT FOOT. TOES WTT. CALL LIGHT IN REACH.
[2023-10-24 05:15] VITALS: BP 137/75; PULSE 55; TEMP 97.5
[2023-10-24 07:22] VITALS: BP_SYST 137
--- NOTE | 2023-10-24 09:18 | NUR ---
PT ALERT AND ORIENTED X4.SAYS HE HAD A GOOD NIGHT, READY TO GO HOME.VSS, SHIFT ASSESSMENT COMPLETE. WAITING ON WALKER TO ARRIVE TO GO HOME WITH. SHIFT ASSESSMENT COMPLETE, MEDICATED PER EMAR. IS REQUESTING A PAIN PILL TO GO HOME WITH FOR THE RIDE AND DISCOMFORT YET, ALSO STATES HE LIVES [address] AW[address]. NO OTHER REQUESTS AT THIS TIME, WILL CALL APRROPRIATELY. CALL LIGHT WITHIN REACH.
[2023-10-24] MEDS ORDERED: MIRALAX238G PO (10:02)
[2023-10-24] MEDS ORDERED: ASPIRIN E.C. 8181 MG PO (10:02)
--- NOTE | 2023-10-24 11:22 | NUR ---
iron worker foreman met with patient to complete IM from Medicare. Pt signed and recieved copy. Original in chart. Patient recieved his wheelchair. SW faxed discharge orders to [facility]. Discharge Plan: Home with [facility]
--- NOTE | 2023-10-24 11:43 | NUR ---
ALL DISCHARGE INSTRUCTIONS EXPLAINED AND ALL QUESTIONS ANSWERED. PT RECIEVED WHEELCHAIR. PT WHEELED OFF UNIT BY STAFF AT 1115 TO PRIVATE VEHICLE.
--- NOTE | 2023-10-24 12:45 | NUR ---
Discharge QIM scores were reviewed by the team. Code of 6 chosen for toileting hygiene was determined by team discussion to be the most usual performance for this patient during the discharge assessment period. Code of 5 chosen for toilet transfers was determined by team discussion to be the most usual performance for this patient during the discharge assessment period. Code of 6 chosen for upper body dressing was determined by team discussion to be the most usual performance for this patient during the discharge assessment period. Code of 6 chosen for lower body dressing was determined by team discussion to be the most usual performance for this patient during the discharge assessment period. Code of 3 chosen for putting on/taking off footwear was determined by team discussion to be the most usual performance for this patient during the discharge assessment period. Code of 6 chosen for sit to lying was determined by team discussion to be the most usual performance for this patient during the discharge assessment period. Code of 6 chosen for sit to stand was determined by team discussion to be the most usual performance for this patient during the discharge assessment period. Code of 6 chosen for chair to bed was determined by team discussion to be the most usual performance for this patient during the discharge assessment period.--PD Yamil
== END 2023-10-24 11:15 | disposition home health service (06) | DRG 561 ==
PROVIDERS: ADMIT Internal Medicine
DX: Z47.89 Encounter for other orthopedic aftercare (principal); Z98.1 Arthrodesis status; E11.9 Type 2 diabetes mellitus without complications; R53.81 Other malaise; F32.9 Major depressive disorder, single episode, unspecified; I25.10 Atherosclerotic heart disease of native coronary artery without angina pectoris; E03.9 Hypothyroidism, unspecified; E66.9 Obesity, unspecified; K59.00 Constipation, unspecified; Z74.09 Other reduced mobility; R26.89 Other abnormalities of gait and mobility; M54.41 Lumbago with sciatica, right side; E78.1 Pure hyperglyceridemia; G47.33 Obstructive sleep apnea (adult) (pediatric); Z79.4 Long term (current) use of insulin; Z79.899 Other long term (current) drug therapy; Z79.82 Long term (current) use of aspirin; I10 Essential (primary) hypertension; Z68.39 Body mass index [BMI] 39.0-39.9, adult
CPT/HCPCS: A9270; J1650

== ENCOUNTER 2024-01-07 10:30 | Outpatient (RCR) | payer MEDICARE, BC ==
[~2024-01-07 10:30] MED LIST changes: +ATARAX 25MG25 MG/TAB PO; +JARDIANCE25 PO; +LYRICA 75MG CAP75 MG PO; +MIRALAX238G PO; +ROXICODONE 55 MG/TAB PO; +STOOL SOFTENER100 M2 PO
== END 2024-01-18 | disposition home or self-care (01) ==
LOC: WSPT
DX: M19.072 Primary osteoarthritis, left ankle and foot (principal); Z98.890 Other specified postprocedural states